=== PATIENT | male | born 1975 | race Two or more races ===

== ENCOUNTER 2022-07-27 04:59 | Day surgery (SDC) | payer OTHER, BC ==
[2022-07-23 15:00] VITALS: BMI 32.5
[2022-07-27 11:43] VITALS: RESP 18
[2022-07-27 14:43] VITALS: BP 114/80; PULSE 59
[2022-07-27 15:46] VITALS: TEMP 97.5
== END 2022-07-27 14:20 | disposition home or self-care (01) ==
LOC: JASU-ENDO 04:59
PROVIDERS: ATTEND Student in an Organized Health Care Education/Training Program
PROC: 0DB78ZX Excision of Stomach, Pylorus, Via Natural or Artificial Opening Endoscopic, Diagnostic (ICD-10-PCS; 2022-07-27)
PROC: 0DB68ZX Excision of Stomach, Via Natural or Artificial Opening Endoscopic, Diagnostic (ICD-10-PCS; 2022-07-27)
PROC: 0DB38ZX Excision of Lower Esophagus, Via Natural or Artificial Opening Endoscopic, Diagnostic (ICD-10-PCS; principal; 2022-07-27 13:00)
DX: K29.50 Unspecified chronic gastritis without bleeding (principal); K44.9 Diaphragmatic hernia without obstruction or gangrene; K21.00 Gastro-esophageal reflux disease with esophagitis, without bleeding
CPT/HCPCS: 88305-TC; 88342-TC